=== PATIENT | female | born 1950 | race Caucasian/White ===

== ENCOUNTER 2018-03-16 10:53 | Outpatient (CLI) | payer MEDICARE ==
--- NOTE | 2018-03-16 12:20 | RAD ---
CHEST 2 VIEWS: Date: 03/25/18 HISTORY: Tobacco abuse. COMPARISON: None. FINDINGS: There is a faint nodular density projecting over the right upper lobe measuring just under 5.0 mm Duyen gs are slightly hyperinflated. No acute osseous abnormality. Cardiac silhouette and mediastinal contours within normal limits. IMPRESSION: Faint right upper lobe nodule measuring just under 5.0 mm. Nonemergent follow-up CT of the chest may be beneficial. CODE LN. POS: OFF
== END 2018-03-16 10:54 | disposition home or self-care (01) ==
LOC: MADRAD 10:53
PROVIDERS: ATTEND Obstetrics & Gynecology
DX: Z72.0 Tobacco use (principal); R91.1 Solitary pulmonary nodule
CPT/HCPCS: 71046